=== PATIENT | male | born 1965 | race African-American/Black ===

== ENCOUNTER → 2018-08-23 | Outpatient (CLI) | payer MEDICARE, BC ==
[2018-08-23 10:11] LABS: APPEARANCE,URINE CLEAR; BILIRUBIN,URINE NEGATIVE (NEGATIVE); COLOR,URINE STRAW; GLUCOSE, URINE NEGATIVE (NEGATIVE); KETONES,URINE NEGATIVE (NEGATIVE); LEUKOCYTE ESTERASE,URINE NEGATIVE (NEGATIVE); NITRITE,URINE NEGATIVE (NEGATIVE); PROTEIN,URINE NEGATIVE (NEGATIVE); URINE SPECIFIC GRAVITY 1.011; UROBILINOGEN,URINE NEGATIVE mg/dL (<2.0)
[2018-08-23 10:34] LABS: ALANINE AMINOTRANSFERASE 24 U/L (21-72); ALBUMIN 4.5 g/dL (3.5-5.0); ALKALINE PHOSPHATASE 78 U/L (38-126); ANION GAP 12 (5-19); ASPARTATE AMINO TRANSFERASE 16 U/L (17-59); BILIRUBIN,DIRECT 0.2 mg/dL (0.0-0.4); BILIRUBIN,TOTAL 0.6 mg/dL (0.2-1.3); BLOOD UREA NITROGEN 12 mg/dL (7-20); CALCIUM 9.9 mg/dL (8.4-10.2); CARBON DIOXIDE 29 mmol/L (22-30); CHLORIDE 103 mmol/L (98-107); CHOLESTEROL 168.71 mg/dL (0-200); GLUCOSE 83 mg/dL (75-110); POTASSIUM 4.8 mmol/L (3.6-5.0); SODIUM 143.6 mmol/L (137-145); TOTAL PROTEIN 7.8 g/dL (6.3-8.2); TRIGLYCERIDES 39 mg/dL (<150)
[2018-08-23 10:45] LABS: DIRECT LDL 96 mg/dL (<100)
== END ==
LOC: OD 09:07
PROVIDERS: ATTEND Family Medicine
DX: E78.5 Hyperlipidemia, unspecified (principal); R35.1 Nocturia; Z80.42 Family history of malignant neoplasm of prostate
CPT/HCPCS: 36415; 80053; 80061; 81001; 84153

== ENCOUNTER 2018-12-09 22:43 | Observation (INO) | payer MEDICARE, BC ==
--- NOTE | 2018-12-09 23:14 | ER Document Report ---
ED Medical Screen (RME) - General Chief Complaint: Chest Pain Stated Complaint: CHEST PAIN Time Seen by Provider: 12/09/18 23:10 Primary Care Provider: KRYSTIAN PARADA MD [Primary Care Provider] - Follow up as needed Notes: 53-year-old -[place] male coming in today with left-sided chest pain with discomfort down his left arm. Symptoms for the past 2 days with some mild shortness of breath. Patient does not have any cardiac history but he does have history of DVT and pulmonary embolism. He is on Eliquis twice daily for that. I have treated and performed a rapid initial assessment of this patient. A comprehensive ED assessment and evaluation of the patient, analysis of test results and completion of medical decision making process will be conducted by additional ED providers. PHYSICAL EXAMINATION: GENERAL: Well-appearing, well-nourished and in no acute distress. A&Ox4. Answers questions appropriately. LUNGS: Breath sounds clear to auscultation bilaterally and equal. No wheezes rales or rhonchi. HEART: Regular rate and rhythm without murmurs, rubs, gallops. ABDOMEN: Soft, nondistended abdomen. No guarding, no rebound. Normal bowel sounds present. No CVA tenderness bilaterally. + mild epigastric tenderness (cannot elicit thorough abd exam w/o table, however). Extremities: No cyanosis, clubbing, or edema b/l. NEUROLOGICAL: Normal speech, normal gait. PSYCH: Normal mood, normal affect. TRAVEL OUTSIDE OF THE [place] IN LAST 30 DAYS: No - Related Data Allergies/Adverse Reactions: No Known Allergies Allergy (Verified 12/09/18 22:44) Physical Exam - Vital signs Vitals: Temp Pulse Resp BP Pulse Ox 98.1 F 62 20 146/91 H 97 12/09/18 22:53 12/09/18 22:53 12/09/18 22:53 12/09/18 22:53 12/09/18 22:53 Course - Vital Signs Vital signs: Temp Pulse Resp BP Pulse Ox 98.1 F 62 20 146/91 H 97 12/09/18 22:53 12/09/18 22:53 12/09/18 22:53 12/09/18 22:53 12/09/18 22:53 Doctor's Discharge - Discharge Referrals: KRYSTIAN PARADA MD [Primary Care Provider] - Follow up as needed
--- NOTE | 2018-12-09 23:40 | RADIOLOGY REPORT (SQ) ---
EXAM DESCRIPTION: XR CHEST 2 VIEWS COMPLETED DATE/TME: 12/09/2018 23:10 CLINICAL HISTORY: 53 years Male, cp COMPARISON: None. NUMBER OF VIEWS/TECHNIQUE: 1/AP FINDINGS: Adequate lung volume, pulmonary vascular congestion, normal cardiac silhouette, and sternotomy. IMPRESSION: Pulmonary vascular congestion.
[2018-12-09 23:41] LABS: ABSOLUTE EOSINOPHILS # (AUTO) 0.1 10^3/uL (0.0-0.6); ABSOLUTE LYMPHOCYTES (AUTO) 2.2 10^3/uL (0.5-4.7); ABSOLUTE MONOCYTES (AUTO) 0.4 10^3/uL (0.1-1.4); ABSOLUTE NEUT (AUTO) 3.4 10^3/uL (1.7-8.2); BASOPHILS % (AUTO) 0.6 % (0-2); EOSINOPHILS % (AUTO) 2.1 % (0-6); HEMATOCRIT 42.3 % (37.9-51.0); HEMOGLOBIN 14.3 g/dL (13.5-17.0); LYMPHOCYTES % (AUTO) 35.8 % (13-45); MEAN CORPUSCULAR HEMOGLOBIN 29.2 pg (27.0-33.4); MEAN CORPUSCULAR HGB CONC 33.8 g/dL (32.0-36.0); MEAN CORPUSCULAR VOLUME 87 fl (80-97); MONOCYTES % (AUTO) 6.4 % (3-13); PLATELET COUNT 190 10^3/uL (150-450); RED CELL DISTRIBUTION WIDTH 14.2 % (11.5-14.0); SEGMENTED NEUTROPHILS % (AUTO) 55.1 % (42-78); TOTAL CELLS COUNTED % (AUTO) 100 %; WHITE BLOOD COUNT 6.1 10^3/uL (4.0-10.5)
[2018-12-09 23:52] LABS: ALANINE AMINOTRANSFERASE 29 U/L (21-72); ALBUMIN 4.2 g/dL (3.5-5.0); ALKALINE PHOSPHATASE 82 U/L (38-126); ANION GAP 7 (5-19); ASPARTATE AMINO TRANSFERASE 18 U/L (17-59); BILIRUBIN,DIRECT 0.1 mg/dL (0.0-0.4); BILIRUBIN,TOTAL 0.3 mg/dL (0.2-1.3); BLOOD UREA NITROGEN 11 mg/dL (7-20); CALCIUM 9.4 mg/dL (8.4-10.2); CARBON DIOXIDE 28 mmol/L (22-30); CHLORIDE 106 mmol/L (98-107); CREATINE KINASE 95 U/L (55-170); GLUCOSE 133 mg/dL (75-110); POTASSIUM 3.9 mmol/L (3.6-5.0); SODIUM 140.5 mmol/L (137-145); TOTAL PROTEIN 7.2 g/dL (6.3-8.2)
[2018-12-10 00:04] LABS: CREATINE KINASE MB 0.95 ng/mL (<4.55)
[2018-12-10 00:14] LABS: TROPONIN I < 0.012 ng/mL
[2018-12-10 01:30] LABS: C-REACTIVE PROTEIN < 5.0 mg/L (<10.0)
[2018-12-10] MEDS ORDERED: MAG HYDROX/AL HYDROX/SIMETH SUSP 30 ML UDCUP PO PRN (01:35)
[2018-12-10] MEDS ORDERED: ASPIRIN 325 MG TABLET PO ONE (01:40)
[2018-12-10] MEDS: APIXABAN 5 MG TABLET PO SCH ×3 (02:03→18:00)
[2018-12-10] MEDS: BENAZEPRIL HCL 5 MG TABLET PO SCH ×2 (02:03→10:05)
--- NOTE | 2018-12-10 02:23 | RADIOLOGY REPORT (SQ) ---
EXAM DESCRIPTION: CT CHEST ANGIOGRAPHY WITHOUT THEN WITH IV CONTRAST COMPLETED DATE/TME: 12/10/2018 00:00 CLINICAL HISTORY: 53 years, Male, pe hx c new chest pain COMPARISON: None. TECHNIQUE: Axial CT images of the chest were obtained after injection of IV contrast. MPR and MIP reconstructions were performed. DLP 1639 Images stored on PACS. All CT scanners at this facility use dose modulation, iterative reconstruction, and/or weight based dosing when appropriate to reduce radiation dose to as low as reasonably achievable (ALARA). [facility]: Dose Right [facility]: CareDose [facility]: Dose Right [facility]: Teradose 4D [facility]: Smart [employer] LIMITATIONS: None. FINDINGS: Upper abdomen: Partially imaged. Moderate to severe right-sided hydronephrosis is partially visualized. The liver contains a subcentimeter hypodensity, which is too small to further characterize. Diverticulosis is noted. Thoracic aorta: Bovine arch Heart: No right atrial thrombus. RV/LV ratio: Within normal limits. Pulmonary arteries: Technical: Adequate opacification to the level of the segmental vessels. Pulmonary embolus: No low-density filling defect to suggest acute PE. Overall embolic burden: None. Mediastinum: No pathologic sized middle mediastinal lymphadenopathy. Tracheobronchial tree: Unremarkable. Lungs: Lobar consolidation: Negative. Pleural effusion: Negative. Pneumothorax: Negative. Other: There is a 4 mm nodule within the superior portion of the right lower lobe (axial image 63). Bones: Unremarkable. IMPRESSION: No CT evidence of acute PE. Moderate to severe right-sided hydronephrosis. 4 mm nodule within the right lower lobe. Recommend repeat CT at 12 months; no further follow-up if unchanged. TECHNICAL DOCUMENTATION: Quality ID # [id number]: Final reports with documentation of one or more dose reduction techniques (e.g., Automated exposure control, adjustment of the mA and/or kV according to patient size, use of iterative reconstruction technique) copyright 2011 [employer]- All Rights Reserved
--- NOTE | 2018-12-10 02:44 | PDOC H&P ---
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 Patient presents with 3 days of episodic left-sided chest pain, 3 out of 5 intensity, without radiation associated with palpitations and shortness of breath. Symptoms appear to be exacerbated by exertion. No alleviating factors. Denies recent change of medications and otherwise feels well. He is referred to the hospitalist for observation. Past Medical History Cardiac Medical History: Reports: Hypertension Malignancy Medical History: Reports: Other - Paraganglioma 2002 Hematology: Reports: Other - DVT and pulmonary emboli Past Surgical History Past Surgical History: Reports: Vascular Surgery - DVT, Other - Sternotomy 2002 Social History Information Source: Patient, Emergency Med Personnel Lives with: Spouse/Significant other Smoking Status: Never Smoker Frequency of Alcohol Use: None Drugs: None - Advance Directive Resuscitation Status: Full Code Family History Family History: CAD, DM, Hypertension Parental Family History Reviewed: Yes Children Family History Reviewed: Yes Sibling(s) Family History Reviewed.: Yes Medication/Allergy Allergies/Adverse Reactions: No Known Allergies Allergy (Verified 12/09/18 22:44) Review of Systems Constitutional: ABSENT: chills, fever(s), headache(s), weight gain, weight loss Eyes: ABSENT: visual disturbances Ears: ABSENT: hearing changes Cardiovascular: ABSENT: chest pain, dyspnea on exertion, edema, orthropnea, palpitations Respiratory: ABSENT: cough, hemoptysis Gastrointestinal: ABSENT: abdominal pain, constipation, diarrhea, hematemesis, hematochezia, nausea, vomiting Genitourinary: ABSENT: dysuria, hematuria Musculoskeletal: ABSENT: joint swelling Integumentary: ABSENT: rash, wounds Neurological: ABSENT: abnormal gait, abnormal speech, confusion, dizziness, focal weakness, syncope Psychiatric: ABSENT: anxiety, depression, homidical ideation, suicidal ideation Endocrine: ABSENT: cold intolerance, heat intolerance, polydipsia, polyuria Hematologic/Lymphatic: ABSENT: easy bleeding, easy bruising Physical Exam Vital Signs: Temp Pulse Resp BP Pulse Ox 98.1 F 62 15 150/88 H 98 12/09/18 22:53 12/09/18 22:53 12/10/18 01:01 12/10/18 01:01 12/10/18 01:01 Intake & Output 12/08/18 12/09/18 12/10/18 11:59 11:59 11:59 Weight 155.854 kg General appearance: PRESENT: no acute distress, well-developed, well-nourished Head exam: PRESENT: atraumatic, normocephalic Eye exam: PRESENT: conjunctiva pink, EOMI, PERRLA. ABSENT: scleral icterus Ear exam: PRESENT: normal external ear exam Mouth exam: PRESENT: moist, tongue midline Neck exam: ABSENT: carotid bruit, JVD, lymphadenopathy, thyromegaly Respiratory exam: PRESENT: clear to auscultation sahara. ABSENT: rales, rhonchi, wheezes Cardiovascular exam: PRESENT: RRR. ABSENT: diastolic murmur, rubs, systolic murmur Pulses: PRESENT: normal dorsalis pedis pul Vascular exam: PRESENT: normal capillary refill GI/Abdominal exam: PRESENT: normal bowel sounds, soft. ABSENT: distended, guarding, mass, organolmegaly, rebound, tenderness Rectal exam: PRESENT: deferred Extremities exam: PRESENT: full ROM, +1 edema - Left leg former site of DVT. ABSENT: calf tenderness, clubbing, pedal edema Neurological exam: PRESENT: alert, awake, oriented to person, oriented to place, oriented to time, oriented to situation, CN II-XII grossly intact. ABSENT: motor sensory deficit Psychiatric exam: PRESENT: appropriate affect, normal mood. ABSENT: homicidal ideation, suicidal ideation Skin exam: PRESENT: dry, intact, warm. ABSENT: cyanosis, rash Results Laboratory Results: 12/09/18 23:30 12/09/18 23:30 12/09/18 12/09/18 12/09/18 23:30 23:30 23:30 WBC 6.1 RBC 4.90 Hgb 14.3 Hct 42.3 MCV 87 MCH 29.2 MCHC 33.8 RDW 14.2 H Plt Count 190 Seg Neutrophils % 55.1 Lymphocytes % 35.8 Monocytes % 6.4 Eosinophils % 2.1 Basophils % 0.6 Absolute Neutrophils 3.4 Absolute Lymphocytes 2.2 Absolute Monocytes 0.4 Absolute Eosinophils 0.1 Absolute Basophils 0.0 Sodium 140.5 Potassium 3.9 Chloride 106 Carbon Dioxide 28 Anion Gap 7 BUN 11 Creatinine 0.86 Est GFR ( Amer) > 60 Est GFR (Non-Af Amer) > 60 Glucose 133 H Calcium 9.4 Total Bilirubin 0.3 AST 18 ALT 29 Alkaline Phosphatase 82 C-Reactive Protein Total Protein 7.2 Albumin 4.2 TSH 1.40 12/09/18 23:30 WBC RBC Hgb Hct MCV MCH MCHC RDW Plt Count Seg Neutrophils % Lymphocytes % Monocytes % Eosinophils % Basophils % Absolute Neutrophils Absolute Lymphocytes Absolute Monocytes Absolute Eosinophils Absolute Basophils Sodium Potassium Chloride Carbon Dioxide Anion Gap BUN Creatinine Est GFR ( Amer) Est GFR (Non-Af Amer) Glucose Calcium Total Bilirubin AST ALT Alkaline Phosphatase C-Reactive Protein < 5.0 Total Protein Albumin TSH 12/09/18 12/09/18 12/09/18 23:30 23:30 23:30 Creatine Kinase 95 CK-MB (CK-2) 0.95 Troponin I < 0.012 NT-Pro-B Natriuret Pep 35 Impressions: Chest X-Ray 12/09/18 23:10 IMPRESSION: Pulmonary vascular congestion. Chest/Abdomen CTA 12/10/18 00:00 IMPRESSION: No CT evidence of acute PE. Moderate to severe right-sided hydronephrosis. 4 mm nodule within the right lower lobe. Recommend repeat CT at 12 months; no further follow-up if unchanged. TECHNICAL DOCUMENTATION: Quality ID # [id number]: Final reports with documentation of one or more dose reduction techniques (e.g., Automated exposure control, adjustment of the mA and/or kV according to patient size, use of iterative reconstruction technique) copyright 2011 [employer]- All Rights Reserved Assessment & Plan - Diagnosis (1) Chest pain Is this a current diagnosis for this admission?: Yes Plan: Atypical chest pain though the patient's pain is atypical there are multiple risk factors for coronary artery disease and subsequently will observe and evaluation of acute coronary syndrome versus coronary artery disease with anginal equivalents. Cardiac monitoring blood pressure Q6 hours ,TSH, lipid profile, serial cardiac enzymes and cardiac stress testing (2) History of pulmonary embolism Is this a current diagnosis for this admission?: Yes Plan: Follow-up CTA given abnormal chest x-ray of mosaic pattern, continue Eliquis (3) Hydronephrosis Is this a current diagnosis for this admission?: Yes Plan: CTA reveals incidentaloma of right-sided hydro-hydronephrosis, follow-up CBC, consult urology - Time Time Spent: 50 to 70 Minutes
--- NOTE | 2018-12-10 03:32 | RADIOLOGY REPORT (SQ) ---
CLINICAL HISTORY: Marked R hydronephrosis on CTA chest COMPARISON: None. TECHNIQUE: CT ABDOMEN PELVIS WITHOUT IV CONTRAST on 12/10/2018 2:48 AM [employer]OR [employer] This exam was performed according to our departmental dose-optimization program, which includes automated exposure control, adjustment of the mA and/or kV according to patient size and/or use of iterative reconstruction technique. FINDINGS: The heart is mildly enlarged following sternotomy. Abdomen: The liver is normal in appearance. There is no biliary dilatation. Gallbladder is normal in appearance. The pancreas and spleen are normal in appearance. There is residual contrast in both renal collecting systems. The right renal collecting system is distended but diffusely opacified with contrast. Adrenal glands are normal. Abdominal aorta is normal in course and caliber without aneurysm. There is no free air. There is no retroperitoneal adenopathy. Pelvis: There is no bowel obstruction. There is contrast filling the urinary bladder. There is no free fluid. Appendix is normal. Skeleton: There are no acute osseous findings. No suspicious bony lesions. IMPRESSION: Diffuse enlargement of the right ureter and right renal collecting systems without hydronephrosis.
--- NOTE | 2018-12-10 04:40 | ER Document Report ---
Entered by RAMBO DEL CID SCRIBE 12/09/18 [id number] Acting as scribe for:TERENCE SHAH MD ED Cardiac - General Chief Complaint: Chest Pain Stated Complaint: CHEST PAIN Time Seen by Provider: 12/09/18 23:10 Mode of Arrival: Ambulatory Information source: Patient Notes: 53 year old male with prior DVT on eliquis that presents to the emergency department today with complaints of chest pain for the last two days described as a "shooting" pain with associated left arm numbness and generalized fatigue. Patient reports that the pain he has been having is not necessarily new, as he has similar pain quite frequently. Patient mentions that the feeling like he has no energy and getting "worn out easy" is new over the last two days. Patient states he is able to sit down to rest and then start activity again but he has to rest very frequently which is not normal for him. Patient denies having any shortness of breath with this. Patient denies any family history of coronary artery disease or shortness of breath. TRAVEL OUTSIDE OF THE [place] IN LAST 30 DAYS: No - Related Data Allergies/Adverse Reactions: No Known Allergies Allergy (Verified 12/09/18 22:44) Past Medical History - General Information source: Patient, [facility] Records - Social History Smoking Status: Never Smoker Cigarette use (# per day): No Frequency of alcohol use: None Drug Abuse: None Lives with: Family Family History: Reviewed & Not Pertinent - Past Medical History Cardiac Medical History: Reports: Hx DVT - 2012,2018, Hx Hypercholesterolemia Past Surgical History: Reports: Other - Removal of benign paraganglioma of the heart/lungs Review of Systems - Review of Systems Constitutional: See HPI, Other - feeling generally tired EENT: No symptoms reported Cardiovascular: See HPI, Chest pain - with left arm numbness Respiratory: denies: Short of breath Gastrointestinal: No symptoms reported Genitourinary: No symptoms reported Male Genitourinary: No symptoms reported Musculoskeletal: No symptoms reported Skin: No symptoms reported Hematologic/Lymphatic: No symptoms reported Neurological/Psychological: No symptoms reported -: Yes All other systems reviewed and negative Physical Exam - Vital signs Vitals: Temp Pulse Resp BP Pulse Ox 98.1 F 62 20 146/91 H 97 12/09/18 22:53 12/09/18 22:53 12/09/18 22:53 12/09/18 22:53 12/09/18 22:53 - Notes Notes: Physical Exam: General: Alert, appears well. HEENT: Normocephalic. Atraumatic. PERRL. Extraocular movements intact. Oropharynx clear. Neck: Supple. Non-tender. Respiratory: No respiratory distress. Clear and equal breath sounds bilaterally. Midline sternotomy scar. Cardiovascular: Regular rate and rhythm. Abdominal: Obese. Non-tender. No distension. Normal Bowel Sounds. Back: Non-tender. No deformity or step off. Extremities: Moves all four extremities. Upper extremities: Normal inspection. Normal ROM. Lower extremities: Trace edema bilaterally, Left>Right, prior DVT on the left. Calves are symmetric in size bilaterally, no calf tenderness bilaterally. Normal ROM. Neurological: Normal cognition. AAOx4. Normal speech. Psychological: Normal affect. Normal Mood. Skin: Warm. Dry. Normal color. Course - Vital Signs Vital signs: Temp Pulse Resp BP Pulse Ox 98.1 F 62 14 140/95 H 96 12/09/18 22:53 12/09/18 22:53 12/10/18 04:02 12/10/18 04:02 12/10/18 04:02 - Laboratory Result Diagrams: 12/09/18 23:30 12/09/18 23:30 Laboratory results interpreted by me: 12/09/18 12/09/18 23:30 23:30 RDW 14.2 H Glucose 133 H - Diagnostic Test Radiology reviewed: Image reviewed, Reports reviewed - CXR is read as prior median sternotomy. Pulmonary vascular congestion. - EKG Interpretation by Vt EKG shows normal: Sinus rhythm, [place], Intervals, QRS Complexes, ST-T Waves Rate: Normal Rhythm: APC's Heart block present: 1st Degree When compared to previous EKG there are: Previous EKG unavailable - Consults Dr. Alberto Time consulted: 00:57 Consulted provider: other - Get an ESR and then he will see the patient. Discharge - Discharge Clinical Impression: History of pulmonary embolism Fatigue Qualifiers: Fatigue type: unspecified Qualified Code(s): R53.83 - Other fatigue Hydronephrosis Qualifiers: Hydronephrosis type: unspecified Qualified Code(s): N13.30 - Unspecified hydronephrosis Chest pain Qualifiers: Chest pain type: unspecified Qualified Code(s): R07.9 - Chest pain, unspecified Condition: Stable Disposition: ADMITTED OBSERVATION Admitting Provider: Hospitalist Unit Admitted: Telemetry Scribe Attestation: 12/10/18 00:27 I personally performed the services described in the documentation, reviewed and edited the documentation which was dictated to the scribe in my presence, and it accurately records my words and actions. I personally performed the services described in the documentation, reviewed and edited the documentation which was dictated to the scribe in my presence, and it accurately records my words and actions.
[2018-12-10 04:46] LABS: APPEARANCE,URINE CLEAR; BILIRUBIN,URINE NEGATIVE (NEGATIVE); COLOR,URINE YELLOW; GLUCOSE, URINE NEGATIVE (NEGATIVE); KETONES,URINE NEGATIVE (NEGATIVE); LEUKOCYTE ESTERASE,URINE NEGATIVE (NEGATIVE); NITRITE,URINE NEGATIVE (NEGATIVE); PROTEIN,URINE NEGATIVE (NEGATIVE); URINE SPECIFIC GRAVITY 1.056; UROBILINOGEN,URINE NEGATIVE mg/dL (<2.0)
[2018-12-10 07:31] LABS: CHOLESTEROL 157.07 mg/dL (0-200); TRIGLYCERIDES 35 mg/dL (<150)
[2018-12-10 07:42] LABS: DIRECT LDL 80 mg/dL (<100)
[2018-12-10] MEDS: DOCUSATE SODIUM 100 MG CAPSULE PO SCH ×2 (10:05→18:00)
--- NOTE | 2018-12-10 16:01 | PDOC PROGRESS REPORT ---
Subjective Progress Note for:: 12/10/18 Subjective:: Patient seen resting in bedside chair. He denies any chest pain, shortness of breath or dyspnea at rest. He denies any nausea, vomiting or abdominal pain. He denies any fevers or chills overnight. He denies any diarrhea or dysuria. He denies any headache. He denies any significant arthralgias or myalgias. Remaining review of systems are negative. Reason For Visit: CHEST PAIN Physical Exam Vital Signs: Temp Pulse Resp BP Pulse Ox 97.8 F 57 L 18 143/86 H 99 12/10/18 14:50 12/10/18 14:50 12/10/18 14:50 12/10/18 14:50 12/10/18 14:50 Intake & Output 12/09/18 12/10/18 12/11/18 06:59 06:59 06:59 Intake Total 580 Output Total 400 Balance -400 580 Weight 155.854 kg 155.854 kg General appearance: PRESENT: no acute distress, morbidly obese, well-developed, well-nourished Head exam: PRESENT: atraumatic, normocephalic Eye exam: PRESENT: conjunctiva pink, EOMI, PERRLA. ABSENT: scleral icterus Ear exam: PRESENT: normal external ear exam Mouth exam: PRESENT: moist, tongue midline Neck exam: ABSENT: carotid bruit, JVD, lymphadenopathy, thyromegaly Respiratory exam: PRESENT: clear to auscultation sahara. ABSENT: rales, rhonchi, wheezes Cardiovascular exam: PRESENT: RRR. ABSENT: diastolic murmur, rubs, systolic murmur Pulses: PRESENT: normal dorsalis pedis pul Vascular exam: PRESENT: normal capillary refill GI/Abdominal exam: PRESENT: normal bowel sounds, soft. ABSENT: distended, guarding, mass, organolmegaly, rebound, tenderness Rectal exam: PRESENT: deferred Extremities exam: PRESENT: full ROM. ABSENT: calf tenderness, clubbing, pedal edema Musculoskeletal exam: PRESENT: ambulatory, full ROM, normal inspection Neurological exam: PRESENT: alert, awake, oriented to person, oriented to place, oriented to time, oriented to situation, CN II-XII grossly intact. ABSENT: motor sensory deficit Psychiatric exam: PRESENT: appropriate affect, normal mood. ABSENT: homicidal ideation, suicidal ideation Skin exam: PRESENT: dry, intact, warm. ABSENT: cyanosis, rash Results Laboratory Results: 12/09/18 23:30 12/09/18 23:30 12/09/18 12/09/18 12/09/18 23:30 23:30 23:30 WBC 6.1 RBC 4.90 Hgb 14.3 Hct 42.3 MCV 87 MCH 29.2 MCHC 33.8 RDW 14.2 H Plt Count 190 Seg Neutrophils % 55.1 Lymphocytes % 35.8 Monocytes % 6.4 Eosinophils % 2.1 Basophils % 0.6 Absolute Neutrophils 3.4 Absolute Lymphocytes 2.2 Absolute Monocytes 0.4 Absolute Eosinophils 0.1 Absolute Basophils 0.0 Sodium 140.5 Potassium 3.9 Chloride 106 Carbon Dioxide 28 Anion Gap 7 BUN 11 Creatinine 0.86 Est GFR ( Amer) > 60 Est GFR (Non-Af Amer) > 60 Glucose 133 H Calcium 9.4 Total Bilirubin 0.3 AST 18 ALT 29 Alkaline Phosphatase 82 C-Reactive Protein Total Protein 7.2 Albumin 4.2 Triglycerides Cholesterol LDL Cholesterol Direct VLDL Cholesterol HDL Cholesterol TSH 1.40 Urine Color Urine Appearance Urine pH Ur Specific [place] Urine Protein Urine Glucose (UA) Urine Ketones Urine Blood Urine Nitrite Ur Leukocyte Esterase Urine WBC (Auto) Urine RBC (Auto) 12/09/18 12/10/18 12/10/18 23:30 04:15 05:54 WBC RBC Hgb Hct MCV MCH MCHC RDW Plt Count Seg Neutrophils % Lymphocytes % Monocytes % Eosinophils % Basophils % Absolute Neutrophils Absolute Lymphocytes Absolute Monocytes Absolute Eosinophils Absolute Basophils Sodium Potassium Chloride Carbon Dioxide Anion Gap BUN Creatinine Est GFR ( Amer) Est GFR (Non-Af Amer) Glucose Calcium Total Bilirubin AST ALT Alkaline Phosphatase C-Reactive Protein < 5.0 Total Protein Albumin Triglycerides 35 Cholesterol 157.07 LDL Cholesterol Direct 80 VLDL Cholesterol 7.0 L HDL Cholesterol 65 TSH Urine Color YELLOW Urine Appearance CLEAR Urine pH 6.0 Ur Specific [place] 1.056 Urine Protein NEGATIVE Urine Glucose (UA) NEGATIVE Urine Ketones NEGATIVE Urine Blood NEGATIVE Urine Nitrite NEGATIVE Ur Leukocyte Esterase NEGATIVE Urine WBC (Auto) 2 Urine RBC (Auto) 1 12/09/18 12/09/18 12/09/18 23:30 23:30 23:30 Creatine Kinase 95 CK-MB (CK-2) 0.95 Troponin I < 0.012 NT-Pro-B Natriuret Pep 35 12/10/18 12/10/18 05:54 12:03 Creatine Kinase CK-MB (CK-2) Troponin I < 0.012 < 0.012 NT-Pro-B Natriuret Pep Impressions: Chest X-Ray 12/09/18 23:10 IMPRESSION: Pulmonary vascular congestion. Chest/Abdomen CTA 12/10/18 00:00 IMPRESSION: No CT evidence of acute PE. Moderate to severe right-sided hydronephrosis. 4 mm nodule within the right lower lobe. Recommend repeat CT at 12 months; no further follow-up if unchanged. TECHNICAL DOCUMENTATION: Quality ID # [id number]: Final reports with documentation of one or more dose reduction techniques (e.g., Automated exposure control, adjustment of the mA and/or kV according to patient size, use of iterative reconstruction technique) copyright 2011 [employer]- All Rights Reserved Abdomen/Pelvis CT 12/10/18 02:48 IMPRESSION: Diffuse enlargement of the right ureter and right renal collecting systems without hydronephrosis. Assessment & Plan - Diagnosis (1) Chest pain Qualifiers: Chest pain type: unspecified Qualified Code(s): R07.9 - Chest pain, unspecified Is this a current diagnosis for this admission?: Yes Plan: Troponins been negative x3 patient describes left-sided chest pain that comes on with exertion. It is relieved by rest. He has a history of essential hypertension and dyslipidemia. Lipids are well controlled. He also has a strong family history of coronary artery disease in both parents. Therefore he would like to have nuclear stress test . We will schedule this for tomorrow. (2) Essential hypertension Is this a current diagnosis for this admission?: Yes Plan: Blood pressure has been borderline high. Will increase his benazepril 10 mg twice daily (3) Dyslipidemia Is this a current diagnosis for this admission?: Yes Plan: Continue statin. (4) Morbid obesity Is this a current diagnosis for this admission?: Yes Plan: Counseled. (5) Pulmonary nodule Is this a current diagnosis for this admission?: Yes Plan: Patient has 4 mm nodule left lower lobe (6) History of pulmonary embolism Is this a current diagnosis for this admission?: Yes (7) Hydronephrosis Qualifiers: Hydronephrosis type: unspecified Qualified Code(s): N13.30 - Unspecified hydronephrosis Is this a current diagnosis for this admission?: Yes Plan: CT of the chest describes right hydronephrosis. CT of the abdomen and pelvis was done which showed no hydronephrosis but dilatation of the right renal collecting system. Patient's urinalysis is unremarkable. We have obtained this office CT he will follow-up with urology as an outpatient. - Time Time Spent with patient: 25-34 minutes Total Critical Time (Minutes): 25 Medications reviewed and adjusted accordingly: Yes Anticipated discharge: Home Within: within 24 hours
[2018-12-10] MEDS: BENAZEPRIL HCL 10 MG TABLET PO SCH (21:33)
[2018-12-10] MEDS: ATORVASTATIN CALCIUM 80 MG TABLET PO SCH (21:33)
--- NOTE | 2018-12-10 22:54 | EKG REPORT ---
SEVERITY:- ABNORMAL ECG - SINUS RHYTHM ATRIAL PREMATURE COMPLEX FIRST DEGREE AV BLOCK : Confirmed by: Silvia Perez 10-Dec-2018 22:53:20
[2018-12-11 06:33] LABS: CHOLESTEROL 149.37 mg/dL (0-200); CREATINE KINASE 56 U/L (55-170); TRIGLYCERIDES 56 mg/dL (<150)
[2018-12-11 06:44] LABS: DIRECT LDL 78 mg/dL (<100)
[2018-12-11] MEDS ORDERED: GLUCAGON,HUMAN RECOMB 1 MG INJ SUBCUT PRN (11:18)
[2018-12-11] MEDS ORDERED: DEXTROSE 40% GEL 15 GM TUBE PO PRN ×2 (11:18)
[2018-12-11] MEDS ORDERED: DEXTROSE 50%-WATER 25 GM/50 ML DISP.SYRIN IV PRN ×2 (11:18)
[2018-12-11] MEDS: BENAZEPRIL HCL 10 MG TABLET PO SCH ×2 (11:20→21:25)
[2018-12-11] MEDS: APIXABAN 5 MG TABLET PO SCH ×2 (11:21→17:22)
[2018-12-11] MEDS: DOCUSATE SODIUM 100 MG CAPSULE PO SCH ×2 (11:21→17:22)
--- NOTE | 2018-12-11 15:26 | PDOC PROGRESS REPORT ---
Subjective Progress Note for:: 12/11/18 Subjective:: 12/11/[id number]dsf-old male admitted for chest pain to rule out acute coronary syndrome. He had a fast phase of stress test done today he is going for the second phase tomorrow. Asymptomatic. No acute events in the last 24 hours. Afebrile. Vision has moderate to severe right-sided hydronephrosis patient is aware that he needs to follow-up with urologist as an outpatient. Reason For Visit: CHEST PAIN Physical Exam Vital Signs: Temp Pulse Resp BP Pulse Ox 97.9 F 59 L 16 154/85 H 98 12/11/18 10:57 12/11/18 10:57 12/11/18 10:57 12/11/18 10:57 12/11/18 10:57 Intake & Output 12/10/18 12/11/18 12/12/18 06:59 06:59 06:59 Intake Total 920 1079 Output Total 400 Balance -042 608 0128 Weight 155.854 kg 157.6 kg General appearance: PRESENT: no acute distress, obese Head exam: PRESENT: atraumatic Eye exam: PRESENT: PERRLA Mouth exam: PRESENT: dry mucosa Teeth exam: PRESENT: poor dentation Neck exam: ABSENT: carotid bruit, JVD, lymphadenopathy, thyromegaly Respiratory exam: PRESENT: clear to auscultation sahara. ABSENT: rales, rhonchi, wheezes Cardiovascular exam: PRESENT: RRR. ABSENT: diastolic murmur, rubs, systolic murmur GI/Abdominal exam: PRESENT: normal bowel sounds, soft. ABSENT: distended, guarding, mass, organolmegaly, rebound, tenderness Extremities exam: PRESENT: full ROM. ABSENT: calf tenderness, clubbing, pedal edema Neurological exam: PRESENT: alert, awake, oriented to person, oriented to place, oriented to time, oriented to situation, CN II-XII grossly intact. ABSENT: motor sensory deficit Psychiatric exam: PRESENT: appropriate affect, normal mood. ABSENT: homicidal ideation, suicidal ideation Results Laboratory Results: 12/09/18 23:30 12/09/18 23:30 12/11/18 05:12 Triglycerides 56 Cholesterol 149.37 LDL Cholesterol Direct 78 VLDL Cholesterol 11.0 HDL Cholesterol 55 12/09/18 12/09/18 12/09/18 23:30 23:30 23:30 Creatine Kinase 95 CK-MB (CK-2) 0.95 Troponin I < 0.012 NT-Pro-B Natriuret Pep 35 12/10/18 12/10/18 12/10/18 05:54 12:03 17:45 Creatine Kinase CK-MB (CK-2) Troponin I < 0.012 < 0.012 < 0.012 NT-Pro-B Natriuret Pep 12/11/18 12/11/18 05:12 05:12 Creatine Kinase 56 CK-MB (CK-2) 0.45 Troponin I NT-Pro-B Natriuret Pep Impressions: Chest X-Ray 12/09/18 23:10 IMPRESSION: Pulmonary vascular congestion. Chest/Abdomen CTA 12/10/18 00:00 IMPRESSION: No CT evidence of acute PE. Moderate to severe right-sided hydronephrosis. 4 mm nodule within the right lower lobe. Recommend repeat CT at 12 months; no further follow-up if unchanged. TECHNICAL DOCUMENTATION: Quality ID # [id number]: Final reports with documentation of one or more dose reduction techniques (e.g., Automated exposure control, adjustment of the mA and/or kV according to patient size, use of iterative reconstruction technique) copyright 2011 [employer]- All Rights Reserved Abdomen/Pelvis CT 12/10/18 02:48 IMPRESSION: Diffuse enlargement of the right ureter and right renal collecting systems without hydronephrosis. Assessment & Plan - Diagnosis (1) Chest pain Qualifiers: Chest pain type: unspecified Qualified Code(s): R07.9 - Chest pain, unspecified Is this a current diagnosis for this admission?: Yes Plan: Troponins been negative x3 patient describes left-sided chest pain that comes on with exertion. It is relieved by rest. He has a history of essential hypertension and dyslipidemia. Lipids are well controlled. He also has a strong family history of coronary artery disease in both parents. Therefore he would like to have nuclear stress test . We will schedule this for tomorrow. 12/11/2018-patient is chest free today. He completed a fast phase of stress test today. Acute DC protocol was implemented during the hospital stay. Lipid profile was done. Patient blood pressure today is 154/85 relatively controlled. Recently on Eliquis 5 mg p.o. twice a day, atorvastatin 80 mg at bedtime, benazepril 10 mg every 12 hours,. Plan is to continue the present management. (2) Essential hypertension Is this a current diagnosis for this admission?: No Plan: 12/11/2018-patient blood pressure today is 154/88. With pulse rate of 59. Not on beta-blockers now. Presently on benazepril 10 mg twice daily plan is to continue the present management. (3) Dyslipidemia Is this a current diagnosis for this admission?: No Plan: 12/11/2018-patient has history of hyperlipidemia total cholesterol is 150 with LDL of 78. Plan is to continue his atorvastatin 80 mg at bedtime. (4) Morbid obesity Is this a current diagnosis for this admission?: No Plan: 12/11/2018 patient's BMI is more than 40. Diet exercise weight loss lifestyle modifications are discussed with the patient. Dietary consult was requested. (5) History of pulmonary embolism Is this a current diagnosis for this admission?: No Plan: 12/11/2018-patient has history of pulmonary embolism on Eliquis twice a day plan is to continue the present management. (6) Hydronephrosis Qualifiers: Hydronephrosis type: unspecified Qualified Code(s): N13.30 - Unspecified hydronephrosis Is this a current diagnosis for this admission?: Yes Plan: 12/11/2018-on the CT scan found to have a moderate to severe left-sided hydronephrosis no evidence of any stones or blockage patient is aware that he needs to follow-up with urologist as an outpatient. - Time Time Spent with patient: 15-24 minutes Medications reviewed and adjusted accordingly: Yes Anticipated discharge: Home
[2018-12-11] MEDS ORDERED: APIXABAN 5 MG TABLET PO SCH (18:00)
[2018-12-11] MEDS: ATORVASTATIN CALCIUM 80 MG TABLET PO SCH (21:25)
[2018-12-11] MEDS ORDERED: ATORVASTATIN CALCIUM 20 MG TABLET PO SCH (22:00)
[2018-12-12 08:03] LABS: ABSOLUTE EOSINOPHILS # (AUTO) 0.1 10^3/uL (0.0-0.6); ABSOLUTE LYMPHOCYTES (AUTO) 1.5 10^3/uL (0.5-4.7); ABSOLUTE MONOCYTES (AUTO) 0.5 10^3/uL (0.1-1.4); ABSOLUTE NEUT (AUTO) 3.3 10^3/uL (1.7-8.2); BASOPHILS % (AUTO) 0.5 % (0-2); EOSINOPHILS % (AUTO) 1.8 % (0-6); HEMATOCRIT 40.2 % (37.9-51.0); HEMOGLOBIN 13.8 g/dL (13.5-17.0); LYMPHOCYTES % (AUTO) 27.4 % (13-45); MEAN CORPUSCULAR HGB CONC 34.4 g/dL (32.0-36.0); MEAN CORPUSCULAR VOLUME 87 fl (80-97); MONOCYTES % (AUTO) 9.1 % (3-13); PLATELET COUNT 178 10^3/uL (150-450); RED BLOOD COUNT 4.61 10^6/uL (4.35-5.55); SEGMENTED NEUTROPHILS % (AUTO) 61.2 % (42-78); TOTAL CELLS COUNTED % (AUTO) 100 %; WHITE BLOOD COUNT 5.5 10^3/uL (4.0-10.5)
[2018-12-12 08:32] LABS: ALANINE AMINOTRANSFERASE 32 U/L (21-72); ALBUMIN 4.1 g/dL (3.5-5.0); ALKALINE PHOSPHATASE 83 U/L (38-126); ANION GAP 7 (5-19); ASPARTATE AMINO TRANSFERASE 19 U/L (17-59); BILIRUBIN,DIRECT 0.1 mg/dL (0.0-0.4); BILIRUBIN,TOTAL 0.9 mg/dL (0.2-1.3); BLOOD UREA NITROGEN 11 mg/dL (7-20); CALCIUM 9.7 mg/dL (8.4-10.2); CARBON DIOXIDE 29 mmol/L (22-30); CHLORIDE 106 mmol/L (98-107); GLUCOSE 93 mg/dL (75-110); POTASSIUM 4.3 mmol/L (3.6-5.0); SODIUM 141.8 mmol/L (137-145)
[2018-12-12] MEDS: APIXABAN 5 MG TABLET PO SCH (10:28)
[2018-12-12] MEDS: DOCUSATE SODIUM 100 MG CAPSULE PO SCH (10:28)
[2018-12-12] MEDS: BENAZEPRIL HCL 10 MG TABLET PO SCH (10:28)
[2018-12-12] MEDS ORDERED: REGADENOSON INJ 0.4 MG/5 ML DISP.SYRIN IV ONE (11:57)
[2018-12-12 12:19] VITALS: BP 135/86
--- NOTE | 2018-12-12 13:23 | DRAGON STRESS TEST REPORT ---
2 Day Intravenous Lexiscan Cardiolite stress test using single photon emmision computerized tomography. Date of Resting procedure: 12/11/2018. Date of Stress procedure: 12/12/2018.Ordering Provider: Ms. Shaye Powell NP. PATIENT STATUS: In Patient Indication: Chest pain. Coronary risk factors: Age, hypertension, dyslipidemia, and family history of coronary artery disease. Resting EKG:: Sinus Rhythm. Within Normal Limits. Stress EKG: No changes of ischemia. The patient had no chest pain or discomfort, and there were no arrhythmias seen. Reason for termination: Protocol. Conclusions: Normal EKG and hemodynamic response to IV Lexiscan. Nuclear data: At rest, on 12/11/2018, the patient was given 37.5 millicuries of technetium 99m sestamibi injected intravenously. As per protocol rest non gated SPECT images were obtained. Subsequently, on 12/12/2018, the patient was given intravenous Lexiscan at a dose of 0.4 mg in 5 mL intravenously, followed by flush with normal saline. Subsequently the stress dose of 44.0 millicuries of technetium 99m sestamibi was injected intravenously. As per protocol stress gated images were obtained. Nuclear interpretation: Review of images showed that all segments of the myocardium had normal perfusion at rest, and normal perfusion post stress with IV Lexiscan. All segments of the myocardium had normal motion, contraction, and thickening by gated study. T. I D. ratio was normal at 1.02. There was no transient ischemic dilatation of the left ventricle. Computer read rest, and stress left ventricular ejection fraction were 52 %, and 50 %, respectively. Visually both the stress and rest ejection fractions were normal, and greater than 55%. Conclusion: 1. There is no scintigraphic evidence of Lexiscan induced myocardial ischemia. 2. There is no scintigraphic evidence of myocardial infarction/scar. Recommendations: Aggressive risk factor modification, and treating the underlying co- morbidities. [facility]
--- NOTE | 2018-12-12 14:35 | PDOC DISCHARGE SUMMARY ---
General - Admit/Disc Date/PCP Admission Date/Primary Care Provider: 12/10/18 03:20 Discharge Date: 12/12/18 - Discharge Diagnosis (1) Chest pain Is this a current diagnosis for this admission?: Yes Summary: Troponins been negative x3 patient describes left-sided chest pain that comes on with exertion. It is relieved by rest. He has a history of essential hypertension and dyslipidemia. Lipids are well controlled. He also has a strong family history of coronary artery disease in both parents. Therefore he would like to have nuclear stress test . We will schedule this for tomorrow. 12/11/2018-patient is chest free today. He completed a fast phase of stress test today. Acute [place] protocol was implemented during the hospital stay. Lipid profile was done. Patient blood pressure today is 154/85 relatively controlled. Recently on Eliquis 5 mg p.o. twice a day, atorvastatin 80 mg at bedtime, benazepril 10 mg every 12 hours,. Plan is to continue the present management. 12/12/2018-patient was admitted for chest pains stress test was completed today Dr. Aquino called me and told me the stress test was negative. Patient was advised that he can go home today and advised to follow-up with the primary care physician in 3-5 days. Advised him to continue the present management. (2) Essential hypertension Is this a current diagnosis for this admission?: No Summary: 12/12/2018 patient blood pressure today is 135/86 with pulse rate of 61 pressure is well controlled patient is presently on benazepril 10 mg every 12 hours he was advised to continue the medication at home. (3) Dyslipidemia Is this a current diagnosis for this admission?: No Summary: 12/12/2018-patient has history of hyperlipidemia on atorvastatin 80 mg p.o. dre baldwin. Lipid profile in the hospital shows cholesterol 149, LDL 78 HDL is 55 patient was advised to continue the present medication at home. (4) Morbid obesity Is this a current diagnosis for this admission?: No Summary: 12/12/2018 patient BMI is more than 40 diet exercise weight loss lifestyle modifications are discussed with the patient dietary consult was done during the hospital stay. (5) History of pulmonary embolism Is this a current diagnosis for this admission?: No Summary: 12/12/2018 patient has history of a pulmonary embolism on Eliquis it was continued during the hospital stay and patient was advised to continue the medication at home. (6) Hydronephrosis Is this a current diagnosis for this admission?: Yes Summary: 12/12/2018 CT scan at admission shows moderate to severe left-sided hydronephrosis with no evidence of obstruction patient denies any pains he was advised to foll ow-up with urologist as an outpatient in 3-5 days. 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 Patient presents with 3 days of episodic left-sided chest pain, 3 out of 5 intensity, without radiation associated with palpitations and shortness of breath. Symptoms appear to be exacerbated by exertion. No alleviating factors. Denies recent change of medications and otherwise feels well. He is referred to the hospitalist for observation. Physical Exam Vital Signs: Temp Pulse Resp BP Pulse Ox 98.2 F 61 17 135/86 H 100 12/12/18 12:00 12/12/18 12:00 12/12/18 12:00 12/12/18 12:00 12/12/18 12:00 Intake & Output 12/11/18 12/12/18 12/13/18 06:59 06:59 06:59 Intake Total 920 2871 Balance 920 2871 Weight 157.6 kg 157.2 kg 157.2 kg General appearance: PRESENT: no acute distress Head exam: PRESENT: atraumatic Eye exam: PRESENT: PERRLA Mouth exam: PRESENT: moist, tongue midline Neck exam: ABSENT: carotid bruit, JVD, lymphadenopathy, thyromegaly Respiratory exam: PRESENT: clear to auscultation sahara. ABSENT: rales, rhonchi, wheezes Cardiovascular exam: PRESENT: RRR. ABSENT: diastolic murmur, rubs, systolic murmur GI/Abdominal exam: PRESENT: normal bowel sounds, soft. ABSENT: distended, guarding, mass, organolmegaly, rebound, tenderness Extremities exam: PRESENT: full ROM. ABSENT: calf tenderness, clubbing, pedal edema Neurological exam: PRESENT: alert, awake, oriented to person, oriented to place, oriented to time, oriented to situation, CN II-XII grossly intact. ABSENT: motor sensory deficit Psychiatric exam: PRESENT: appropriate affect, normal mood. ABSENT: homicidal ideation, suicidal ideation Results Laboratory Results: 12/12/18 07:40 12/12/18 07:40 12/12/18 12/12/18 07:40 07:40 WBC 5.5 RBC 4.61 Hgb 13.8 Hct 40.2 MCV 87 MCH 30.0 MCHC 34.4 RDW 14.0 Plt Count 178 Seg Neutrophils % 61.2 Lymphocytes % 27.4 Monocytes % 9.1 Eosinophils % 1.8 Basophils % 0.5 Absolute Neutrophils 3.3 Absolute Lymphocytes 1.5 Absolute Monocytes 0.5 Absolute Eosinophils 0.1 Absolute Basophils 0.0 Sodium 141.8 Potassium 4.3 Chloride 106 Carbon Dioxide 29 Anion Gap 7 BUN 11 Creatinine 0.84 Est GFR ( Amer) > 60 Est GFR (Non-Af Amer) > 60 Glucose 93 Calcium 9.7 Magnesium 2.0 Total Bilirubin 0.9 AST 19 ALT 32 Alkaline Phosphatase 83 Total Protein 7.0 Albumin 4.1 12/09/18 12/09/18 12/09/18 23:30 23:30 23:30 Creatine Kinase 95 CK-MB (CK-2) 0.95 Troponin I < 0.012 NT-Pro-B Natriuret Pep 35 12/10/18 12/10/18 12/10/18 05:54 12:03 17:45 Creatine Kinase CK-MB (CK-2) Troponin I < 0.012 < 0.012 < 0.012 NT-Pro-B Natriuret Pep 12/11/18 12/11/18 05:12 05:12 Creatine Kinase 56 CK-MB (CK-2) 0.45 Troponin I NT-Pro-B Natriuret Pep Impressions: Chest X-Ray 12/09/18 23:10 IMPRESSION: Pulmonary vascular congestion. Chest/Abdomen CTA 12/10/18 00:00 IMPRESSION: No CT evidence of acute PE. Moderate to severe right-sided hydronephrosis. 4 mm nodule within the right lower lobe. Recommend repeat CT at 12 months; no further follow-up if unchanged. TECHNICAL DOCUMENTATION: Quality ID # [id number]: Final reports with documentation of one or more dose reduction techniques (e.g., Automated exposure control, adjustment of the mA and/or kV according to patient size, use of iterative reconstruction technique) copyright 2011 [employer]- All Rights Reserved Abdomen/Pelvis CT 12/10/18 02:48 IMPRESSION: Diffuse enlargement of the right ureter and right renal collecting systems without hydronephrosis. Qualifiers - * PATIENT BEING DISCHARGED WITH ANY OF THE FOLLOWING DIAGNOSIS: No VTE patient discharged on overlapping Therapy?: No
== END 2018-12-12 15:05 | disposition home or self-care (01) ==
LOC: ER 22:43 → EH 12-10 03:20 → 4S 12-10 04:47
PROVIDERS: ADMIT Internal Medicine; ATTEND Internal Medicine
DX: R07.89 Other chest pain (principal); I10 Essential (primary) hypertension; E78.5 Hyperlipidemia, unspecified; E66.01 Morbid (severe) obesity due to excess calories; N13.30 Unspecified hydronephrosis; R00.2 Palpitations; R06.02 Shortness of breath; Z68.41 Body mass index [BMI] 40.0-44.9, adult; R60.0 Localized edema; R91.1 Solitary pulmonary nodule; R20.0 Anesthesia of skin; R53.83 Other fatigue; I44.0 Atrioventricular block, first degree; Z82.49 Family history of ischemic heart disease and other diseases of the circulatory system; Z86.711 Personal history of pulmonary embolism; Z79.899 Other long term (current) drug therapy; Z79.02 Long term (current) use of antithrombotics/antiplatelets; Z86.718 Personal history of other venous thrombosis and embolism; Z98.890 Other specified postprocedural states; Z86.03 Personal history of neoplasm of uncertain behavior
CPT/HCPCS: 93005; 99285; 36415 ×4; 82553 ×2; 82550 ×2; 83735; 84443; 85025 ×2; 85652; 86140; 80053 ×2; 81001; 84484 ×2; 85379; 80061 ×2; 83880; 93017; 71046; 78452; 71275; 74176; 93010; A9500; J2785; A9270 ×13; J3490 ×2; Q9969